=== PATIENT | female | born 1995 | race Caucasian/White ===

== ENCOUNTER 2021-07-31 19:30 | Emergency (ER) | payer MEDICAID ==
[~2021-07-31] VITALS: Ht 173 cm; Wt 134.5 kg
[~2021-07-31 19:30] MED LIST: AMOX500C2 PO; AMOX875T2 PO; LEVO500T69 PO; METR500T PO; NAPR-243 PO; SULF1TAB38 PO
--- NOTE | 2021-07-31 19:44 | ED Lower Extremity ---
General Stated Complaint: R LEG/FOOT PAIN Source: patient Exam Limitations: no limitations (JEANINE BULLOCK APRN) History of Present Illness Date Seen by Provider: Jul 31, 2021 Time Seen by Provider: 19:42 Initial Comments To ER by private vehicle with reports of right lateral foot pain for about 3 weeks without known injury. Has been to the chiropractor for this to have it "popped back into place". She is not sure what popped out of place to begin with. Today she developed some posterior right calf pain. Onset: just prior to arrival Severity: moderate Pain/Injury Location: right leg, right foot Method of Injury: unknown Modifying Factors: Worse With Movement (JEANINE BULLOCK APRN) Allergies and Home Medications Allergies Coded Allergies: No Known Drug Allergies (Unverified , 01/12/10) Patient Home Medication List Home Medication List Reviewed: Yes (JEANINE BULLOCK APRN) No Active Prescriptions or Reported Meds Review of Systems Constitutional: see HPI EENTM: see HPI Respiratory: no symptoms reported Cardiovascular: no symptoms reported Genitourinary: no symptoms reported Musculoskeletal: see HPI Skin: no symptoms reported Psychiatric/Neurological: No Symptoms Reported (JEANINE BULLOCK APRN) Past Gvhmchi-Jtnfur-Nnarcu Hx Seasonal Allergies Seasonal Allergies: No (JEANINE BULLOCK APRN) Past Medical History Reproductive Disorders: Yes Female Reproductive Disorders: Pelvic Inflammatory Dis Sexually Transmitted Disease: No Irritable Bowel Anxiety, Depression (JEANINE BULLOCK APRN) Family Medical History No Pertinent Family Hx (JEANINE BULLOCK APRN) Physical Exam Vital Signs Vital Signs - First Documented 07/31/21 19:37 Temp 36.7 Pulse 90 Resp 18 B/P (MAP) 154/94 (114) Pulse Ox 99 O2 Delivery Room Air (MARION,JIL K DO) Vital Signs Capillary Refill : (JEANINE BULLOCK APRN) Height, Weight, BMI Height: 5'8" Weight: 283lbs. oz. 128.604955we; BMI Method:Stated General Appearance: WD/WN, no apparent distress HEENT: PERRL/EOMI, normal ENT inspection Respiratory: no respiratory distress, no accessory muscle use Hips: bilateral hip non-tender, bilateral hip normal inspection, bilateral hip normal range of motion Legs: bilateral leg non-tender, bilateral leg normal inspection, bilateral leg normal range of motion; right leg other (Right leg is not erythematous and does not appear swollen.) Knees: bilateral knee non-tender, bilateral knee normal inspection, bilateral knee normal range of motion Ankles: bilateral ankle non-tender, bilateral ankle normal inspection, bilateral ankle normal range of motion Feet: bilateral foot non-tender, bilateral foot normal inspection, bilateral foot normal range of motion Neurologic/Psychiatric: alert, normal mood/affect, oriented x 3 Skin: normal color, warm/dry (JEANINE BULLOCK APRN) Progress/Results/Core Measures Results/Orders Lab Results Laboratory Tests Test 07/31/21 19:49 Range/Units D-Dimer 0.36 0.00-0.49 UG/ML (JIL SCHULTZ DO) Vital Signs/I&O 07/31/21 07/31/21 19:37 20:42 Temp 36.7 36.5 Pulse 90 87 Resp 18 18 B/P (MAP) 154/94 (114) 135/91 Pulse Ox 99 100 O2 Delivery Room Air Room Air (JIL SCHULTZ DO) Departure Impression Primary Impression: Strain of right calf muscle Additional Impression: Right foot pain Disposition: 01 HOME, SELF-CARE Condition: Stable Departure-Patient Inst. Decision time for Depature: 20:37 (JAENINE BULLOCK APRN) Referrals: [facility] (PCP/Family) Primary Care Physician Patient Instructions: Muscle Strain Add. Discharge Instructions: 1. Tylenol and ibuprofen for pain control. Follow-up with your doctor next week return to ER for any concerns. Scripts No Active Prescriptions or Reported Meds ATTENDING PHYSICIAN NOTE: I WAS PHYSICALLY PRESENT ER PHYSICIAN WHEN THIS PATIENT WAS IN ER, BUT I WAS NOT INVOLVED IN ANY DECISION MAKING OR ANY CARE OF THIS PATIENT. (JIL SCHULTZ DO) JEANINE BULLOCK APRN Jul 31, 2021 19:44 JIL SCHULTZ DO Aug 04, 2021 00:02
[2021-07-31 20:42] VITALS: BP 135/91
--- NOTE | 2021-07-31 21:04 | Diagnostic Imaging Report ---
INDICATION: Foot pain from being on feet all day. TECHNIQUE: Three views of the right foot. CORRELATION STUDY: None. FINDINGS: Mild hallux valgus primus varus alignment. Alignment otherwise anatomic. No acute fracture. Joint spaces overall are fairly well maintained. Rather prominent plantar calcaneal spur. Soft tissues appearing unremarkable. IMPRESSION: Negative for acute findings of the foot. Prominent plantar calcaneal spur. Dictated by: Dictated on workstation # [id number]
== END 2021-07-31 20:44 | disposition home or self-care (01) ==
LOC: EDUNIT# 19:30 → ER 19:31
DX: S86.911A Strain of unspecified muscle(s) and tendon(s) at lower leg level, right leg, initial encounter (principal); X50.0XXA Overexertion from strenuous movement or load, initial encounter
CPT/HCPCS: 36415; 73630; 85379

== ENCOUNTER 2023-04-02 10:40 | Emergency (ER) | payer OTHER ==
[~2023-04-02] VITALS: Ht 175 cm; Wt 130.0 kg
[2023-04-02 10:57] VITALS: BP 148/104
--- NOTE | 2023-04-02 11:26 | ED Abdominal Pain ---
General Chief Complaint: Abdominal/GI Problems Stated Complaint: AB MOVEMENT/NON RELATED Nursing Triage Note: pt has had abd "movement" for a couple months but states she is not Source of Information: Patient Exam Limitations: No Limitations (MAGGIE WHITFIELD APRN) History of Present Illness Date Seen by Provider: Apr 02, 2023 Time Seen by Provider: 11:00 Initial Comments 27-year-old female presents to the ER with reports of fluttering in her abdomen for the last couple of months. She states that the fluttering changes location. Reports that the fluttering is all over. She states she is unsure how frequently it occurs. She states that she is not , she is currently on her menstrual cycle which started on 03/29. She states that it does not feel like gas, she states it feels like when you have butterflies in your stomach. Patient does have a history of anxiety, but states this does not feel like anxie ty. She denies seeing any movement in her abdomen. She reports she has been having mild lower abdominal pain and feels as though she is not completely emptying her bladder. Denies pain with urination. Reports she has been urinating frequently, but states she drinks a lot of water. She states that she is concerned that she has a hernia because a friend suggested this to her. R eports pain is worse with movement, reported discomfort in lower abdomen when sitting up. Reports her last bowel movement was within the last 24 hours. Reports 1 episode of loose stool within the last 24 hours. She reports yesterday she was nauseous, denies vomiting. Denies nausea today. Denies fevers. She has not had any abdominal surgeries. (MAGGIE WHITFIELD APRN) Allergies and Home Medications Allergies Coded Allergies: No Known Drug Allergies (Unverified , 01/12/10) Patient Home Medication List Home Medication List Reviewed: Yes (MAGGIE WHITFIELD APRN) No Active Prescriptions or Reported Meds Review of Systems Review of Systems Constitutional: see HPI (MAGGIE WHITFIELD APRN) Past Gilqqzx-Gldynu-Bvifvv Hx Patient Social History Tobacco Use?: No Use of E-Cig and/or Vaping dev: Yes E-Cig or Vaping type used: Marijuana, CBD Use of E-Cig and/or Vaping Leonel: Current Everyday User Alcohol Use?: Yes Alcohol Frequency: Once in a while Pt feels they are or have been: No (MAGGIE WHITFIELD APRN) Immunizations Up To Date Influenza Vaccine Up-to-Date: No; Not Current First/Initial COVID19 Vaccinat: 01/16 Second COVID19 Vaccination Gigi: 02/16 (MAGGIE WHITFIELD APRN) Seasonal Allergies Seasonal Allergies: No (MAGGIE WHITFIELD APRN) Past Medical History Surgery/Hospitalization HX: denies Last Menstrual Period: Apr 02, 2023 Reproductive Disorders: Yes Female Reproductive Disorders: Pelvic Inflammatory Dis Sexually Transmitted Disease: No Irritable Bowel Anxiety, Depression (MAGGIE WHITFIELD APRN) Family Medical History No Pertinent Family Hx (MAGGIE WHITFIELD APRN) Physical Exam Vital Signs Vital Signs - First Documented 04/02/23 10:57 Temp 36.5 Pulse 73 Resp 16 B/P (MAP) 148/104 (119) O2 Delivery Room Air (HUGO CEJA MD) Vital Signs Capillary Refill : Less Than 3 Seconds (MAGGIE WHITFIELD APRN) Height/Weight/BMI Height: 5'8" Weight: 283lbs. oz. 128.609402ct; 42.00 BMI Method:Stated General Appearance: WD/WN, no apparent distress, obese Neck: supple, normal inspection Respiratory: lungs clear, normal breath sounds, no respiratory distress, no accessory muscle use Cardiovascular: regular rate, rhythm Gastrointestinal: normal bowel sounds, soft, tenderness (Mid upper and right upper quadrant) Extremities: normal range of motion, normal inspection Neurologic/Psychiatric: alert, normal mood/affect Skin: normal color (MAGGIE WHITFIELD APRN) Progress/Results/Core Measures Results/Orders Lab Results Laboratory Tests Test 04/02/23 11:10 04/02/23 12:18 Range/Units Urine Color YELLOW Urine Clarity SLIGHTLY CLOUDY Urine pH 5.5 5-9 Urine Specific [place] 1.015 L 1.016-1.022 Urine Protein TRACE NEGATIVE Urine Glucose (UA) NEGATIVE NEGATIVE Urine Ketones TRACE H NEGATIVE Urine Nitrite NEGATIVE NEGATIVE Urine Bilirubin NEGATIVE NEGATIVE Urine Urobilinogen 1 < = 1.0 MG/DL Urine Leukocyte Esterase NEGATIVE NEGATIVE Urine RBC (Auto) NEGATIVE NEGATIVE Urine RBC NONE /HPF Urine WBC RARE /HPF Urine Squamous Epithelial Cells 5-10 /HPF Urine Crystals NONE /LPF Urine Bacteria FEW H /HPF Urine Casts NONE /LPF Urine Mucus SMALL H /LPF Urine Culture Indicated NO White Blood Count 8.6 4.3-11.0 10^3/uL Red Blood Count 4.85 3.80-5.11 10^6/uL Hemoglobin 12.8 11.5-16.0 g/dL Hematocrit 41 35-52 % Mean Corpuscular Volume 84 80-99 fL Mean Corpuscular Hemoglobin 26 25-34 pg Mean Corpuscular Hemoglobin Concent 32 32-36 g/dL Red Cell Distribution Width 13.9 10.0-14.5 % Platelet Count 313 130-400 10^3/uL Mean Platelet Volume 10.0 9.0-12.2 fL Immature Granulocyte % (Auto) 0 % Neutrophils (%) (Auto) 74 42-75 % Lymphocytes (%) (Auto) 18 12-44 % Monocytes (%) (Auto) 7 0-12 % Eosinophils (%) (Auto) 1 0-10 % Basophils (%) (Auto) 1 0-10 % Neutrophils # (Auto) 6.3 1.8-7.8 10^3/uL Lymphocytes # (Auto) 1.5 1.0-4.0 10^3/uL Monocytes # (Auto) 0.6 0.0-1.0 10^3/uL Eosinophils # (Auto) 0.1 0.0-0.3 10^3/uL Basophils # (Auto) 0.1 0.0-0.1 10^3/uL Immature Granulocyte # (Auto) 0.0 0.0-0.1 10^3/uL Sodium Level 140 135-145 MMOL/L Potassium Level 3.9 3.6-5.0 MMOL/L Chloride Level 107 98-107 MMOL/L Carbon Dioxide Level 22 21-32 MMOL/L Anion Gap 11 5-14 MMOL/L Blood Urea Nitrogen 8 7-18 MG/DL Creatinine 0.86 0.60-1.30 MG/DL Estimat Glomerular Filtration Rate 94 BUN/Creatinine Ratio 9 Glucose Level 93 70-105 MG/DL Calcium Level 9.4 8.5-10.1 MG/DL Corrected Calcium 9.2 8.5-10.1 MG/DL Total Bilirubin 0.5 0.1-1.0 MG/DL Aspartate Amino Transf (AST/SGOT) 16 5-34 U/L Alanine Aminotransferase (ALT/SGPT) 15 0-55 U/L Alkaline Phosphatase 61 40-136 U/L C-Reactive Protein High Sensitivity 0.89 H 0.00-0.50 MG/DL Total Protein 8.3 H 6.4-8.2 GM/DL Albumin 4.3 3.2-4.5 GM/DL Lipase 26 8-78 U/L Serum Test, Qualitative NEGATIVE NEGATIVE (HUGO CEJA MD) Vital Signs/I&O 04/02/23 10:57 Temp 36.5 Pulse 73 Resp 16 B/P (MAP) 148/104 (119) O2 Delivery Room Air (HUGO CEJA MD) Blood Pressure Mean: 119 Progress Progress Note : Progress Note Patient seen and evaluated, resting comfortably in bed, no acute distress. Based on exam and symptoms, work-up initiated including CBC, CMP, lipase, UA, urine , hCG qualitative, CRP, CT abdomen pelvis. [address] reviewed. CBC grossly normal. CMP grossly normal. CRP normal. Urine and hCG qualitative negative. Urinalysis negative for infection. CT abdomen pelvis shows small fat-containing umbilical hernia. No other acute abnormality. Results discussed with patient. Patient instructed to follow-up with surgery regarding hernia. Discharge instructions and return precautions provided. (MAGGIE WHITFIELD APRN) Diagnostic Imaging Diagonstic Imaging: CT Plain Films/CT/US/NM/MRI: abdomen, pelvis Comments [facility], [place] NAME: ALETA ESTRADA [facility] REC#: [id number] PT STATUS: REG ER : 1995 PHYSICIAN: MAGGIE WHITFIELD APRN ADMIT DATE: 04/02/23/ER Draft Date of Exam:04/02/23 CT ABDOMEN/PELVIS W PROCEDURE: CT abdomen and pelvis with contrast. TECHNIQUE: Multiple contiguous axial images were obtained through the abdomen and pelvis after administration of intravenous contrast. Auto Exposure Controls were utilized during the CT exam to meet ALARA standards for radiation dose reduction. All CT scans use one or more of the following dose optimizing techniques: automated exposure control, MA and/or KvP adjustment based on patient size and exam type or iterative reconstruction. INDICATION: Abdominal pain. CORRELATION is made with prior study 12/24/2013. The lung bases are clear. The liver and gallbladder are unremarkable. The pancreas and spleen are unremarkable. No adrenal mass is identified. Kidneys are unremarkable. There is no hydronephrosis. Aorta is nonaneurysmal. There is a small fat-containing umbilical hernia. Bowel loops are normal caliber. No inflammatory changes are seen. There is no free fluid or fluid collection identified. Uterus and bladder are unremarkable. There is a contraceptive device in the vagina. IMPRESSION: No acute abnormality in the abdomen or pelvis is identified. Dictated on workstation # [id number] Dict: 04/02/23 1247 Trans: 04/02/23 1252 [facility] [id number] Interpreted by: JACQUELINE DAMIAN MD Electronically signed by: (MAGGIE WHITFIELD APRN) Departure Impression Primary Impression: Umbilical hernia Qualified Codes: K42.9 - Umbilical hernia without obstruction or gangrene Disposition: HOME, SELF-CARE Condition: Stable Departure-Patient Inst. Decision time for Depature: 13:11 (MAGGIE WHITFIELD APRN) Referrals: [facility] [place] (PCP/Family) Primary Care Physician JOB JOVEL MD Patient Instructions: Umbilical Hernia, Adult Add. Discharge Instructions: Follow-up with Dr. Jovel regarding your hernia. Weight loss can help prevent the hernia from becoming larger. Return if you have severe abdominal pain and you are unable to have a bowel movement, or any other new, concerning, or worsening symptoms. All discharge instructions reviewed with patient and/or family. Voiced under standing. Scripts No Active Prescriptions or Reported Meds ATTENDING PHYSICIAN NOTE: I was physically present as attending physician in the emergency department during the care of this patient, but I was not directly involved in the decision making or delivery of care for this patient. (HUGO CEJA MD) MAGGIE WHITFIELD APRN Apr 02, 2023 11:26 HUGO CEJA MD Apr 04, 2023 07:27
[2023-04-02] MEDS ORDERED: IOHEXOL 350 MG/ML 100 ML (OMNIPAQUE 350) VIAL IV ONE (11:30)
[2023-04-02] MEDS ORDERED: HOLD METFORMIN - RECEIVED CONTRAST 20 ML VIAL IV SCH (11:30)
[2023-04-02] MEDS ORDERED: NS 100 ML (IVPB) BAG IV ONE (11:30)
[2023-04-02 11:56] LABS: COLOR,URINE YELLOW
[2023-04-02 11:57] LABS: BACTERIA,URINE FEW /HPF; BILIRUBIN,URINE NEGATIVE (NEGATIVE); CLARITY,URINE SLIGHTLY CLOUDY; GLUCOSE, URINE (UA) NEGATIVE (NEGATIVE); KETONES,URINE TRACE (NEGATIVE); LEUKOCYTE ESTERASE ,URINE NEGATIVE (NEGATIVE); NITRITE,URINE NEGATIVE (NEGATIVE); PH,URINE 5.5 (5-9); PROTEIN,URINE TRACE (NEGATIVE); WBC,URINE RARE /HPF
[2023-04-02 12:26] LABS: BASOPHILS # (AUTO) 0.1 10^3/uL (0.0-0.1); BASOPHILS % (AUTO) 1 % (0-10); EOSINOPHILS # (AUTO) 0.1 10^3/uL (0.0-0.3); EOSINOPHILS % (AUTO) 1 % (0-10); HEMATOCRIT 41 % (35-52); HEMOGLOBIN 12.8 g/dL (11.5-16.0); LYMPHOCYTES # (AUTO) 1.5 10^3/uL (1.0-4.0); LYMPHOCYTES % (AUTO) 18 % (12-44); MEAN CORPUSCULAR HEMOGLOBIN 26 pg (25-34); MEAN CORPUSCULAR HGB CONC 32 g/dL (32-36); MEAN CORPUSCULAR VOLUME 84 fL (80-99); MONOCYTES # (AUTO) 0.6 10^3/uL (0.0-1.0); MONOCYTES % (AUTO) 7 % (0-12); NEUTROPHILS # (AUTO) 6.3 10^3/uL (1.8-7.8); NEUTROPHILS % (AUTO) 74 % (42-75); PLATELET COUNT 313 10^3/uL (130-400); WHITE BLOOD COUNT 8.6 10^3/uL (4.3-11.0)
[2023-04-02 12:37] LABS: ALBUMIN 4.3 GM/DL (3.2-4.5); POTASSIUM 3.9 MMOL/L (3.6-5.0)
[2023-04-02 12:38] LABS: CALCIUM 9.4 MG/DL (8.5-10.1)
[2023-04-02 12:40] LABS: TOTAL PROTEIN 8.3 GM/DL (6.4-8.2)
[2023-04-02 12:41] LABS: BILIRUBIN,TOTAL 0.5 MG/DL (0.1-1.0)
[2023-04-02 12:43] LABS: CREATININE SERUM 0.86 MG/DL (0.60-1.30)
--- NOTE | 2023-04-02 12:52 | Diagnostic Imaging Report ---
PROCEDURE: CT abdomen and pelvis with contrast. TECHNIQUE: Multiple contiguous axial images were obtained through the abdomen and pelvis after administration of intravenous contrast. Auto Exposure Controls were utilized during the CT exam to meet ALARA standards for radiation dose reduction. All CT scans use one or more of the following dose optimizing techniques: automated exposure control, MA and/or KvP adjustment based on patient size and exam type or iterative reconstruction. INDICATION: Abdominal pain. CORRELATION is made with prior study 12/24/2013. The lung bases are clear. The liver and gallbladder are unremarkable. The pancreas and spleen are unremarkable. No adrenal mass is identified. Kidneys are unremarkable. There is no hydronephrosis. Aorta is nonaneurysmal. There is a small fat-containing umbilical hernia. Bowel loops are normal caliber. No inflammatory changes are seen. There is no free fluid or fluid collection identified. Uterus and bladder are unremarkable. There is a contraceptive device in the vagina. IMPRESSION: No acute abnormality in the abdomen or pelvis is identified. Dictated by: Dictated on workstation # [id number]
== END 2023-04-02 13:23 | disposition home or self-care (01) ==
LOC: EDUNIT# 10:40 → ER 10:44
DX: K42.9 Umbilical hernia without obstruction or gangrene (principal); F17.290 Nicotine dependence, other tobacco product, uncomplicated; E66.9 Obesity, unspecified; Z68.41 Body mass index [BMI] 40.0-44.9, adult
CPT/HCPCS: 36415; 74177; 80053; 81000; 83690; 84703; 85025; 86141

== ENCOUNTER 2023-04-07 11:13 | Emergency (ER) | payer OTHER ==
[2023-04-07] MEDS ORDERED: ONDA4TAB11 SL (12:10)
--- NOTE | 2023-04-07 12:11 | ED GI ---
General Chief Complaint: Abdominal/GI Problems Stated Complaint: ABD PAIN | BREAST PAIN | VAGINAL SPOTTING Nursing Triage Note: PT AMB TO [facility] WITH C/O ABD PAIN, NAUSEA AND BREAST PAIN. PT WAS TOLD LAST WEEK SHE HAD AN UMBILICAL HERNIA, THEN [facility] CALLED HER TODAY AND TOLD HER SHE DID NOT HAVE A HERNIA Source of Information: Patient, Old Records Exam Limitations: No Limitations History of Present Illness Date Seen by Provider: Apr 07, 2023 Time Seen by Provider: 11:15 Initial Comments 27-year-old female with past medical history of depression coming in due to abd ominal discomfort. This has been going on for several months, was seen in the ER 5 days ago, had normal lab work and a normal CT scan. The CT did show a very small umbilical hernia that was fat-containing. She went to [facility], had an ultrasound done yesterday which was normal as well. She has had numerous negative test. LMP was March 29. She is having some irregular ble eding right now, and has had some irregular bleeding in between periods 1 other time recently. She has had some intermittent breast tenderness as well for the past several months. Has some mild nausea but no vomiting. Otherwise denies any fever, dysuria, vaginal discharge, diarrhea, severe abdominal pain, severe chest pain, or any other concerns. Allergies and Home Medications Allergies Coded Allergies: No Known Drug Allergies (Unverified , 01/12/10) Patient Home Medication List Home Medication List Reviewed: Yes Ondansetron (Ondansetron Odt) 4 Mg Tab.rapdis, 4 MG SL Q6H PRN for NAUSEA/VOMITING Prescribed by: RACHEAL HA on 04/07/23 1210 Review of Systems Review of Systems Constitutional: No fever EENTM: No Symptoms Reported Respiratory: No Symptoms Reported Cardiovascular: No Symptoms Reported Gastrointestinal: See HPI Genitourinary: See HPI Musculoskeletal: no symptoms reported Skin: no symptoms reported Psychiatric/Neurological: No Symptoms Reported Endocrine: No Symptoms Reported Hematologic/Lymphatic: No Symptoms Reported All Other Systems Reviewed Negative Unless Noted: Yes Past Rnjezzg-Tjfasv-Bgwywz Hx Patient Social History Tobacco Use?: No Use of E-Cig and/or Vaping dev: Yes E-Cig or Vaping type used: Nicotine Substance use?: Yes Substance type: Marijuana Alcohol Use?: Yes Alcohol Frequency: Rarely Pt feels they are or have been: No Immunizations Up To Date First/Initial COVID19 Vaccinat: 01/16 Second COVID19 Vaccination Gigi: 02/16 Third COVID19 Vaccination Date: 01/16 Seasonal Allergies Seasonal Allergies: No Past Medical History Surgery/Hospitalization HX: denies Last Menstrual Period: Mar 29, 2023 Reproductive Disorders: Yes Female Reproductive Disorders: Pelvic Inflammatory Dis Sexually Transmitted Disease: No Irritable Bowel Anxiety, Depression Family Medical History No Pertinent Family Hx Physical Exam Vital Signs Vital Signs - First Documented 04/07/23 11:23 Temp 36.9 Pulse 72 Resp 17 B/P (MAP) 155/106 (122) Pulse Ox 98 O2 Delivery Room Air Capillary Refill : Height/Weight/BMI Height: 5'8" Weight: 283lbs. oz. 128.293104wb; 42.00 BMI Method:Stated General Appearance: WD/WN, no apparent distress HEENT: PERRL/EOMI, normal ENT inspection, pharynx normal Neck: non-tender, full range of motion, supple, normal inspection Respiratory: chest non-tender, lungs clear, normal breath sounds, no respiratory distress, no accessory muscle use Cardiovascular: regular rate, rhythm, no edema, no murmur Gastrointestinal: normal bowel sounds, non tender, soft; No distended, No guarding, No rebound Extremities: normal range of motion, non-tender, normal inspection, no pedal edema, no calf tenderness, normal capillary refill Back: normal inspection, no CVA tenderness Neurologic/Psychiatric: no motor/sensory deficits, alert, normal mood/affect Skin: normal color, warm/dry Progress/Results/Core Measures Results/Orders My Orders Orders - RACHEAL HA MD Urine Bedside (04/07/23 11:20) Droperidol Injection (Ed Only) (Droperid (04/07/23 12:15) Diphenhydramine Tablet (Diphenhydramine (04/07/23 12:15) Vital Signs/I&O 04/07/23 11:23 Temp 36.9 Pulse 72 Resp 17 B/P (MAP) 155/106 (122) Pulse Ox 98 O2 Delivery Room Air Blood Pressure Mean: 122 Progress Progress Note : Progress Note 27-year-old female with above history coming in due to multiple somatic issues at this time, most notably feels like she is feeling movement in her abdomen for the past several months. ABCs were intact and vitals were stable on presentatio n. Physical exam reassuring including a soft nontender abdomen. test negative again today. I did review of the chart, I confirmed normal labs the other day and normal CT scan. On top of that with a normal ultrasound as an outpatient yesterday, that is very reassuring. I discussed with the abnormal vaginal bleeding outside of her regular period, I would recommend following up with [facility]. I will give her some droperidol for her nausea today via an IM injection. I believe she is otherwise stable for discharge with outpatient follow-up. She was sent home with strict return precautions Departure Impression Primary Impression: Abdominal pain Additional Impression: Dysfunctional uterine bleeding Disposition: HOME, SELF-CARE Condition: Stable Departure-Patient Inst. Decision time for Depature: 12:15 Referrals: FERNIE SYKES MAYRA L APRN (PCP) Primary Care Physician Patient Instructions: Bleeding Between Periods Add. Discharge Instructions: I would recommend following up with Dr. Sykes, the [facility] CONTR[facility] here in town. Her number's in this paperwork. I would focus on your dysfunctional uterine bleeding where you are having bleeding between periods as well as your breast tenderness and discharge to see if there are any thoughts that she has regarding this. Nausea medicines were sent to your pharmacy as well in case you need them. Scripts Ondansetron (Ondansetron Odt) 4 Mg Tab.rapdis 4 MG SL Q6H PRN for NAUSEA/VOMITING for 5 Days, #20 TAB Prov: RACHEAL HA MD 04/07/23 Work/School Note: Work Release Form Date Seen in the Emergency Department: Apr 07, 2023 Return to Work: Apr 08, 2023 Restrictions: No Restrictions RACHEAL HA MD Apr 07, 2023 12:11
[2023-04-07] MEDS ORDERED: DroPERidol INJECTION 5 MG/2 ML (ED ONLY!) IV ONE (12:15)
[2023-04-07] MEDS ORDERED: diphenhydrAMINE 25 MG TABLET PO ONE (12:15)
[2023-04-07 12:23] VITALS: BP 155/106
== END 2023-04-07 12:25 | disposition home or self-care (01) ==
LOC: EDUNIT# 11:13 → ER 11:16
DX: N93.8 Other specified abnormal uterine and vaginal bleeding (principal); F17.210 Nicotine dependence, cigarettes, uncomplicated
CPT/HCPCS: 84703; 99284